=== PATIENT | female | born 1985 | race Caucasian/White ===

== ENCOUNTER 2023-10-12 07:39 | Emergency (ER) | payer SELFPAY ==
[2023-10-12 07:41] VITALS: BP 127/62; PULSE 100; RESP 18; TEMP 36.6; O2SAT 100; BMI 27.4
[2023-10-12 07:46] VITALS: BP 127/82; PULSE 93; O2SAT 100
--- NOTE | 2023-10-12 07:50 | HMH.EDGENADL ---
Discharge Plan Disposition Patient Disposition: Home, Self-Care Condition: Good Prescriptions Prescriptions: New fluconazole 150 mg tablet 150 mg PO Q3D Qty: 1 0RF cephalexin 500 mg capsule 500 mg PO Q6H 7 Days Qty: 28 0RF Referrals Follow up/Referrals: Provider,Referral, [Primary Care Provider] - See instructions Activity Restrictions/Add. Instructions Additional Instructions/Restrictions: As we discussed, your urinalysis shows evidence of a UTI. This could be due to sexually transmitted bacteria or nonsexually transmitted bacteria. After our discussion, you prefer to wait on the results of gonorrhea and chlamydia testing prior to treating this as if it were a sexually transmitted infection. Your test was negative. I have prescribed antibiotics as well as a yeast pill to the pharmacy. Please return with any new or worsening symptoms. It may be the case that your test is negative because you are too early in your , for that reason if you still do not have your period you will need another test. Clinical Impressions Clinical Impression: Urinary tract infection Instructions Patient Instructions: DI for Urinary Tract Infection (UTI) Discharge ED Provider: Raleigh Barrios General Adult HPI General Chief complaint: Urogenital-Female Stated complaint: uti Time Seen by Provider: 10/12/23 07:50 History of Present Illness HPI narrative: The patient presents with concerns about being approximately 10 days late for her menstrual period, which is unusual as she typically experiences her period either two days early or a day or two late. She denies experiencing typical symptoms such as morning sickness. Additionally, she reports symptoms suggestive of a urinary tract infection (UTI), which began about five days ago. These symptoms include a burning sensation during urination, particularly towards the end, and some discharge. She also mentions experiencing cramping at the top of her abdomen. The symptoms had briefly subsided after consuming cranberry juice but then flared up again. This morning, she started experiencing pain in her back on both sides. She confirms that she has had similar UTI symptoms in the past. She denies any history of kidney stones, abdominal surgeries, or diabetes. She is not currently on any medications. The possibility of a sexually transmitted infection (STI) was discussed, and she agreed to proceed with precautionary treatment for potential STIs like gonorrhea or chlamydia, pending further diagnostic results. Please note that above description of symptoms, in this electronic medical record under categorization of recalled from ER triage doctor by RN are reflective of an initial nursing assessment, however, is not reflective of my full history and physical exam that was personally taken and clarified. Consequentially, this preceding description of symptoms, which may include the patient's categorized chief complaint in the EMR, do not reflect my personal clinical impression, and the ultimate description of history of present illness and patient stated complaints should be deferred to this section of the note. Unless stated otherwise or congruent with this section of the note, additional signs, symptoms, or incongruence should be interpreted as inaccurate with my clinical impression. Related Data Previous Rx's Medication Instructions Recorded cephalexin 500 mg capsule 500 mg PO Q6H 7 days #28 caps 10/12/23 fluconazole 150 mg tablet 150 mg PO Q3D 1 dose #1 tab 10/12/23 Allergies Allergy/AdvReac Type Severity Reaction Status Date / Time tramadol Allergy Verified 10/12/23 07:52 [facility] Disclaimer: The information contained in this section may have been updated after the patient was seen, as this information can be updated by other users. Social History Smoking Status: Current every day smoker alcohol intake: former current occupational status: other Travel in the last 8 weeks: None ROS Obtained: Yes other As per HPI Physical Exam General General appearance: alert and in no apparent distress Head Head exam: atraumatic and normocephalic Eye Eye exam: Present normal appearance Neck Neck exam: Present normal inspection Chest Chest inspection: Present normal inspection and symmetric chest wall rise Respiratory Respiratory exam: Present normal lung sounds bilaterally; Absent respiratory distress Cardiovascular Cardiovascular exam: Present regular rate and normal rhythm Abdominal Exam Abdominal exam: Present soft Neurological Exam Neurological exam: Present alert and oriented X3 Psychiatric Psychiatric exam: Present normal affect and normal mood Skin Skin exam: Present warm and dry Medical Decision Making Medical Records Medical records reviewed: Yes I reviewed the patient's medical records. Andre Inquiry Pt receiving controlled substance: No Vital Signs: 10/12/23 07:41 10/12/23 07:46 10/12/23 08:42 Temperature 97.8 F 98.0 F Temperature Source Oral Pulse Rate 93 H 60 Pulse Rate [Right] 100 H Respiratory Rate 18 13 Blood Pressure 127/82 117/67 Blood Pressure [Right Arm] 127/62 Blood Pressure Mean 90 Blood Pressure Mean [Right Arm] 83 02 Sat by Pulse Oximetry 100 100 Oxygen Delivery Method Room Air Lab Data Lab Results 10/12/23 07:49: Urine Color Yellow, Urine Appearance Sl cloudy, Urine pH 6.0, Ur Specific Bartlett >= 1.030, Urine Protein Trace, Urine Glucose (UA) Negative, Urine Ketones Negative, Urine Blood Trace-i, Urine Nitrate Positive, Urine Bilirubin Negative, Urine Urobilinogen 1.0, Ur Leukocyte Esterase Negative, Urine RBC 3-5, Urine WBC 50-100, Ur Squamous Epith Cells 3-5, Urine Bacteria 4+, Urine HCG, Qual Negative Orders (Tests/Meds): ORDERS Category Date Time Status Urinalysis and Microscopic Stat Lab 10/12/23 07:49 Completed Urine , HCG Qual. Stat Lab 10/12/23 07:49 Completed Urine Culture Stat Micro 10/12/23 07:49 Results Medical Decision Narrative: Patient with history and exam per above presenting for evaluation of dysuria, suprapubic abdominal pain Diagnoses considered include cystitis, pyelonephritis, STI, among others ED workup and treatment included: ORDERS Category Date Time Status Urinalysis and Microscopic Stat Lab 10/12/23 07:49 Completed Urine , HCG Qual. Stat Lab 10/12/23 07:49 Completed Urine Culture Stat Micro 10/12/23 07:49 Results Labs were independently interpreted by me, significant for pyuria, bacteriuria, test negative There is insufficient evidence of any acute pathology to warrant imaging at this time. My clinical impression at this time is most consistent with UTI, patient declines STI empiric treatment and will follow-up with PCP for further testing after shared decision making. I discussed my clinical impression with patient and answered all questions. At this time, the evidence for any other entities in the differential is insufficient to warrant any further testing or ED observation. This was explained to the patient. The patient was advised that persistent or worsening symptoms require further evaluation. I confirmed the patient's understanding of this discussion. Critical Care Critical Care Time Critical Care Time: No
[2023-10-12 07:56] LABS: Microscopic, Urine URINE MICROSCOPIC (MICROSCOPIC)
[2023-10-12 07:57] LABS: Appearance,Urine SL CLOUDY (Clear); Bilirubin,Urine Negative (Negative); Blood, Urine TRACE-I (Negative); Color,Urine YELLOW (Yellow); Glucose,Urine (UA) Negative (Negative); Ketones,Urine Negative (Negative); Leukocyte Esterase,Urine Negative (Negative); Nitrate,Urine POSITIVE (Negative); Protein,Urine TRACE (Negative); Specific Gravity, Urine >= 1.030 (1.005-1.030)
[2023-10-12 08:00] LABS: Urine Pregnancy, HCG Qual. Negative (Negative)
[2023-10-12 08:14] LABS: Bacteria,Urine 4+ /lpf
[2023-10-12 08:16] LABS: WBC,Urine 50-100 #/hpf (0-3)
--- OUTSIDE RECORDS SUMMARY | 2023-10-12 08:24 | XMS_ITS | Continuity of Care Document ---
Author Name Unknown Address [address], [place] [id number] Organization [facility] Phone Care Team Providers Care Test Manager Name Role Phone GUSTAVO WALKER Admitting GUSTAVO WALKER Unavailable GUSTAVO WALKER Primary Attending DECLINED, PCP Primary Care Unavailable ALLERGIES AND ADVERSE REACTIONS ALLERGIES AND ADVERSE REACTIONS Code System Allergy Substance Adverse Reaction Date Reaction (Severity) Comment Status Reported By Updated By TRAMADOL Adverse reaction to substance stomach cramps active [id number] on June 05, 2023 11:10:[place] [address] RXNorm Ultram Adverse reaction to substance Not Specified active [id number] on June 05, 2023 11:10:07 PM [place] FAMILY HISTORY RELATION: Father Status: LIVING SNOMED-CT Diagnosis Age At Onset [id number] Hypertensive disorder RELATION: Mother Status: LIVING SNOMED-CT Diagnosis Age At Onset Information not available RESULTS Patient: NANCY Mora Date of : [birth year] 986 63 LABORATORY RESULTS ORDER 100: UA WITH CULTURE I F INDICATED (LOINC: 13445-1) ORDER DATE: June 05, 2023 11:10:00 PM UTC Specimen Source: Urine PERFORMING LAB: [address] [id number] Result Comment: Final Result Date: June 06, 2023 12:06:00 AM UTC (TECH: PS) LOINC TEST FLAG RESULT REFERENCE RANGE UPDA ITZEL BY 5778-6 Color of Urine N YELLOW YELLOW Janua 2023 12:06:00 AM UTC (TECH: PS) 5767-9 Appearance of Urine N HAZY CLEAR June 06, 2023 12:06:00 AM UTC (TECH: PS) 5792-7 Glucose [Mass/volume] in Urine by Test strip N NEGATIVE NEGATIVE June 06, 2023 12:06:00 AM UTC (TECH: PS) 67890-3 Bilirubin.total [Mass/volume] in Urine by Automated test strip N NEGATIVE NEGATIVE June 06, 2023 12:06:00 AM UTC (TECH: PS) 5797-6 Ketones [Mass/volume] in Urine by Test strip N NEGATIVE NEGATIVE June 06, 2023 12:06:00 AM UTC (TECH: PS) 2965-2 Specific gravity of Urine H 1.030 1.005 - 1.025 June 06, 2023 12:06:00 AM UTC (TECH: PS) 89219-3 Erythrocytes [#/volume] in Urine by Automated test strip N TRACE-LYSED NEGATIVE June 06, 2023 12:06:00 AM UTC (TECH: PS) 95708-4 pH of Urine by Automated test strip N 5.5 5.0 - 8.0 June 06, 2023 12:06:00 AM UTC (TECH: PS) 54885-1 Protein [Presence] in Urine by Test strip N NEGATIVE NEGATIVE June 06, 2023 12:06:00 AM UTC (TECH: PS) 23840-4 Urobilinogen [Mass/volume] in Urine by Automated test strip N 0.2 E.U./dL 0.0 - 0.2 June 06, 2023 12:06:00 AM UTC (TECH: PS) 86202-5 Nitrate [Presence] in Urine N NEGATIVE NEGATIVE June 06, 2023 12:06:00 AM UTC (TECH: PS) 71582-9 Leukocytes [#/volume] in Urine by Test strip N 2+ NEGATIVE June 06, 2023 12:06:00 AM UTC (TECH: PS) 67079-7 Other elements in Urine sediment N INDICATED June 06, 2023 12:06:00 AM UTC (TECH: PS) 54112-5 Microscopic exam [interpretation] of Urine by Cytology N YES June 06, 2023 12:06:00 AM UTC (TECH: PS) 40901-6 Erythrocytes [#/area] in Urine sediment by Microscopy high power field N 0-2 NONE SEEN/HPF June 06, 2023 12:06:00 AM UTC (TECH: PS) 5821-4 Leukocytes [#/area] in Urine sediment by Microscopy high power field N 40-60 NONE SEEN/HPF June 06, 2023 12:06:00 AM UTC (TECH: PS) 10074-5 Epithelial cells.squamous [#/area] in Urine sediment by Microscopy high power field N 0-2 NONE SEEN June 06, 2023 12:06:00 AM UTC (TECH: PS) 5769-5 Bacteria [#/area] in Urine sediment by Microscopy high power field N 1+ NEGATIVE June 06, 2023 12:06:00 AM UTC (TECH: PS) ORDER 200: GC AND CHLAMYDIA BY PCR IN-HOUSE (LOINC: 30048-6) ORDER DATE: June 05, 2023 11:28:00 PM UTC Specimen Source: Urine PERFORMING LAB: [address] [id number] Result Comment: Final Result Date: June 06, 2023 1:30:00 AM UTC (TECH: [facility]) LOINC TEST [place] [address]-4 Chlamydia sp DNA [Presence] in Unspecified specimen by Probe and target amplification method N NEGATIVE NEGATIVE June 06, 2023 1:30:00 AM UTC (TECH: [facility]) 36530-4 Neisseria gonorrhoea e DNA [Presence] in Unspecified specimen by Probe and target amplification method N NEGATIVE NEGATIVE June 06, 2023 1:30:00 AM UTC (TECH: [facility]) ORDER 300: URINE T EST (LOINC: 2112-1) ORDER DATE: June 05, 2023 11:28:00 PM UTC Specimen Source: Urine PERFORMING LAB: [address] [id number] Result Comment: Final Result Date: June 06, 2023 12:00:00 AM UTC (TECH: PS) LOINC TEST FLAG RESULT REFERENCE RANGE UPDA ITZEL BY 2112-1 Choriogonadotropin.b eta subunit ( test) [Presence] in Urine N NEGATIVE NEGATIVE June 06, 2023 12:00:00 AM UTC (TECH: PS) 29726-3 Non-patient Communic ation note N PASS PASS June 06, 2023 12:00:00 AM UTC (TECH: PS) LABORATORY NARRATIVE RESULTS Information is not available RADIOLOGY RESULTS Information is not available PATHOLOGY NARRATIVE RESULTS Information is not available MICROBIOLOGY RESULTS No Micro Labs/Results Exist for Patient BLOOD ADMIN RESULTS Information is not available TREATMENT PLAN DISCHARGE MEDICATIONS Status RXNORM Medication Dose Route Frequency Dates Comments U pdated By Patient discharge medication information is not available. PATIENT OPEN ORDERS Code System Description Frequency Occurrences Priority Start Date Ordering Physician Updated By 630-4 LOINC Bacteria identified in Urine by Culture ONE TIME 0 Routine June 06, 2023 12:05:[address] [facility] DAGMAR DELGADO on June 06, 2023 12:05:[address] [facility] SCHEDULED PROCEDURES Code System Description Status Scheduled Date Upd ated By Patient scheduled procedure information is not available. MEDICATIONS HOME MEDICATIONS Status RXNORM Medication Dose Route Frequency Dates Comments R eported By Updated By Drug Treatment Unknown DISCHARGE MEDICATIONS Status RXNORM Medication Dose Route Frequency Dates Comments Physic venita Updated By No Discharge Medication Info rmation Available INPATIENT MEDICATIONS Status RXNORM Medication Dose Route Frequency Rate Quantity Dates Comments Physician Updated By Jay Jay alfonso nitrofurant oin (MACRODANTI N) 50 MG CAPS 50.0 MG BY MOUTH ONE TIME ONLY Start: natalie 2023 1:51:0 0 AM [place] End: Alhaji lopes 2023 1:51:[address] [facility] AARON CHEN [facility] ED on June 06, 2023 1:50:00 AM [place] SOCIAL HISTORY SOCIAL HISTORY SNOMED-CT Social History Element Description Effective Dates Offered Cessation Comment UpdatedBy [id number] Historical Tobacco smoking status Current Every Day Smoker Refused 3 cig a day [id number] on April 26, 2019 3:56:34 PM [place] SOCIAL HISTORY - Gender Sex: Female SOCIAL HISTORY - Sexual Behavior Sexual Orientation Gender Identity SNOMED-CT Description SNO MED -CT Description Activity Level No of Partners Partner Type UpdatedBy Information is not available VITAL SIGNS PATIENT VITAL SIGNS This section displays the mo st recent value for each vital sign as of June 06, 2023 3:05:[address] [facility] Loinc Code Vital Sign Activity Date Result Updated By 8462-4 Diastolic blood pressure June 06, 2023 2:03:00 AM [place] 61.0 mm[Hg] [id number] on June 06, 2023 2:04:[address] [facility] 8867-4 Heart rate June 06, 2023 2:03:[address] [facility] 84 /min [id number] on June 06, 2023 2:04:[address] [facility] 46031-2 Oxygen saturation in Blood June 06, 2023 2:03:[address] [facility] 99.0 % [id number] on June 06, 2023 2:04:[address] [facility] 9279-1 Respiratory rate June 06 2:03:[address] [facility] 18 /min [id number] on June 06, 2023 2:04:[address] [facility] 8480-6 Systolic blood pressure June 06, 2023 2:03:00 AM [place] 121.0 mm[Hg] [id number] on June 06, 2023 2:04:[address] [facility] PEDIATRIC GROWTH CHART - VITAL SIGNS This section displays Head C ircumference Percentile, Weight for Length Percentile and BMI Percentile Loinc Code Pediatric Measure Age (Months) Result Updat ed By No Pediatric Growth Chart Pe rcentile Information Available. HEALTH CONCERNS Problems Concern Status Health Concern problem infor mation not available. Smoking Status Status Years Used Consumed packs p er day Health Concern smoking histo ry information not available. Family History Concern Status Health Concern family histor y information not available. ENCOUNTERS ENCOUNTER INFORMATION Reason for Visit URINARY ISSUE Admission June 05, 2023 11:03:00 PM [place] [id number] Discharge June 06, 2023 2:05:[address] [facility] DISCHARGED TO HOME OR SELF CARE ENCOUNTER DIAGNOSES Notes information is not derek ilable. Code System Diagnosis Onset Date Diagnosis information is not available. ABSTRACT DIAGNOSES Code System Diagnosis Updated By Abstract Diagnosis informati on is not available. CARE TEAM Care Test Manager Role GUSTAVO WALKER Admitting GUSTAVO WALKER Referring GUSTAVO WALKER Primary Attending PCP DECLINED Primary Care CARE TEAM CARE bond underwriter Role on Team Status Start Date End Date Update d By AARON CHEN Referring normal June 06 12:46:[address] [facility] June 06, 2023 2:05:[address] [facility] [id number] on June 06, 2023 12:46:[address] [facility] AARON CHEN Attending normal June 06 12:46:[address] [facility] June 06, 2023 2:05:[address] [facility] [id number] on June 06, 2023 12:46:[address] [facility] AARON CHEN Admitting normal June 06 12:46:[address] [facility] June 06, 2023 2:05:[address] [facility] [id number] on June 06, 2023 12:46:[address] [facility] DECLINED PCP PCP normal June 05 11:03:[address] [facility] June 06, 2023 2:05:[address] [facility] [id number] on June 06, 2023 12:46:[address] [facility]
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
--- OUTSIDE RECORDS SUMMARY | 2023-10-12 08:24 | XMS_ITS | Continuity of Care Document ---
Author Name Unknown Address [address] [place] [phone] Organization [facility] Care Team Providers Care Cover Creaser Name Role Phone EDISON WAKEFIELD Admitting EDISON WAKEFIELD Primary Attending DECLINED, PCP Primary Care Unavailable EDISON WAKEFIELD Unavailable ALLERGIES AND ADVERSE REACTIONS ALLERGIES AND ADVERSE REACTIONS Code System Allergy Substance Adverse Reaction Date Reaction (Severity) Comment Status Reported By Updated By TRAMADOL Adverse reaction to substance stomach cramps active [id number] on October 10, 2023 4:34:[place] [address] RXNorm Ultram Adverse reaction to substance Not Specified active [id number] on October 10, 2023 4:34:54 PM UT FAMILY HISTORY RELATION: Father Status: LIVING SNOMED-CT Diagnosis Age At Onset [id number] Hypertensive disorder RELATION: Mother Status: LIVING SNOMED-CT Diagnosis Age At Onset Information not available RESULTS Patient: NANCY Mora Date of : [birth year] 64 LABORATORY RESULTS ORDER 100: CBC W/ AUTO DIFF (LOINC: 50710-8) ORDER DATE: October 10, 2023 4:35:00 PM UT Specimen Source: Whole Blood Specimen Type: Whole blood s ample PERFORMING LAB: [address] [id number] Result Comment: Final Result Date: October 10, 2023 5:44:00 PM UT (TECH: GS) LOINC TEST FLAG RESULT REFERENCE RANGE UPDA ITZEL BY 6690-2 Leukocytes [#/volume ] in Blood by Automated count N 8.81 K/uL 4.5 K/uL - 11.5 K/uL October 10, 2023 5:44:00 PM UT (TECH: GS) 789-8 Erythrocytes [#/volume] in Blood by Automated count N 4.69 M/uL 4.0 M/uL - 5.4 M/uL October 10, 2023 5:44:00 PM UTC ([employer]: [employer]) 718-7 Hemoglobin [Mass/volume] in Blood N 14.1 g/dL 12.0 g/dL - 15.0 g/dL October 10, 2023 5:44:00 PM UTC (TECH: [employer]) 4544-3 Hematocrit [Volume Fraction] of Blood by Automated count N 41.8 % 35 % - 49 % October 10, 2023 5:44:00 PM UTC ([employer]) 787-2 Erythrocyte mean corpuscular volume [Entitic volume] by Automated count N 89.1 fL 80.0 fL - 100.0 fL October 10, 2023 5:44:00 PM UTC ([employer]) 785-6 Erythrocyte mean corpuscular hemoglobin [Entitic mass] by Automated count N 30.1 pg 26.0 pg - 32.0 pg October 10, 2023 5:44:00 PM UTC ([employer]) 786-4 Erythrocyte mean corpuscular hemoglobin concentration [Mass/volume] by Automated count N 33.7 g/dL 32.0 g/dL - 36.0 g/dL October 10, 2023 5:44:00 PM UTC ([employer]) 788-0 Erythrocyte distribution width [Ratio] by Automated count N 13.2 % 11.5 % - 14.5 % October 10, 2023 5:44:00 PM UTC ([employer]) 777-3 Platelets [#/volume] in Blood by Automated count N 265 K/uL 142 K/uL - 424 K/uL October 10, 2023 5:44:00 PM UTC ([employer]) 27693-0 Platelet mean volume [Entitic volume] in Blood by Automated count N 9.8 fL 6.8 fL - 10.2 fL October 10, 2023 5:44:00 PM UTC ([employer]) 09038-8 Neutrophils/100 leukocytes in Blood N 63.8 % 50 % - 70 % October 10, 2023 5:44:00 PM UTC (TECH: [employer]) 72159-7 Lymphocytes/100 leukocytes in Blood N 24.2 % 18.0 % - 42.0 % October 10, 2023 5:44:00 PM UTC (TECH: GS) 88699-3 Monocytes/100 leukocytes in Blood N 10.0 % 2.0 % - 11.0 % October 10, 2023 5:44:00 PM UTC (TECH: GS) 02786-4 Eosinophils/100 leukocytes in Blood N 1.4 % 1.0 % - 3.0 % October 10, 2023 5:44:00 PM UTC (TECH: GS) 95053-4 Basophils/100 leukocytes in Blood N 0.3 % 0.0 % - 2.0 % October 10, 2023 5:44:00 PM UTC (TECH: GS) 92379-6 Immature granulocytes/100 leukocytes in Blood by Automated count N 0.3 % 0.0 % - 0.8 % October 10, 2023 5:44:00 PM UTC (TECH: GS) 00999-6 Nucleated cells [#/volume] in Blood N 0.0 % October 10, 2023 5:44:00 PM UTC (TECH: GS) 47145-4 Neutrophils [#/volume] in Blood N 5.62 K/uL October 10, 2023 5:44:00 PM UTC (TECH: GS) 15030-4 Lymphocytes [#/volume] in Blood N 2.13 K/uL October 10, 2023 5:44:00 PM UTC (TECH: GS) 11561-5 Monocytes [#/volume] in Blood N 0.88 K/uL October 10, 2023 5:44:00 PM UTC (TECH: GS) 44040-1 Eosinophils [#/volume] in Blood N 0.12 K/uL October 10, 2023 5:44:00 PM UTC (TECH: GS) 704-7 Basophils [#/volume] in Blood by Automated count N 0.03 K/uL October 10, 2023 5:44:00 PM UTC (TECH: GS) 28003-3 Immature granulocyte s [#/volume] in Blood N 0.03 K/uL October 10, 2023 5:44:00 PM UTC (TECH: GS) 23301-7 Nucleated cells [#/volume] in Blood N 0.00 k/uL October 10, 2023 5:44:00 PM UTC (TECH: GS) 94491-4 Manual differential comment [interpretation] in Blood Narrative N NO October 10, 2023 5:44:00 PM UTC (TECH: ) ORDER 200: COMP METABOLIC PA FRANK (LOINC: 27387-9) ORDER DATE: October 10, 2023 4:35:00 PM UT Specimen Source: Serum/Plasm a Specimen Type: Acellular blo od (serum or plasma) specimen PERFORMING LAB: [address] [id number] Result Comment: Final Result Date: October 10, 2023 5:53:00 PM UT (TECH: [facility]) LOINC TEST FLAG RESULT REFERENCE RANGE UPDA ITZEL BY 2951-2 Sodium [Moles/volume ] in Serum or Plasma N 140 mmol/L 137 mmol/L - 147 mmol/L October 10, 2023 5:53:00 PM UT (TECH: [facility]) 2823-3 Potassium [Moles/volume] in Serum or Plasma N 3.8 mmol/L 3.5 mmol/L - 5.1 mmol/L October 10, 2023 5:53:00 PM UT (TECH: CB) 2075-0 Chloride [Moles/volume] in Serum or Plasma N 104 mmol/L 98 mmol/L - 110 mmol/L October 10, 2023 5:53:00 PM UT (TECH: CB) 8-9 Carbon dioxide, tota l [Moles/volume] in Serum or Plasma N 28 mmol/L 21 mmol/L - 30 mmol/L October 10, 2023 5:53:00 PM UT (TECH: CB) 59231-6 Anion gap in Serum o r Plasma N 8 mmol/L 6 mmol/L - 14 mmol/L October 10, 2023 5:53:00 PM UT (TECH: CB) 2345-7 Glucose [Mass/volume ] in Serum or Plasma N 88 mg/dL 70 mg/dL - 115 mg/dL October 10, 2023 5:53:00 PM UT (TECH: CB) 3094-0 Urea nitrogen [Mass/volume] in Serum or Plasma N 15 mg/dL 7 mg/dL - 17 mg/dL October 10, 2023 5:53:00 PM UT (TECH: CB) 2160-0 Creatinine [Mass/volume] in Serum or Plasma N 0.8 mg/dL 0.5 mg/dL - 1.5 mg/dL October 10, 2023 5:53:[address] [facility] (TECH: [employer]) 3097-3 Urea nitrogen/Creatinine [Mass Ratio] in Serum or Plasma N 19 RATIO 10 RATIO - 20 RATIO October 10, 2023 5:53:[address] [facility] (TECH: [employer]) 28359-9 Glomerular filtratio n rate/1.73 sq M.predicted N 86 mL/min >60 October 10, 2023 5:53:[address] [facility] (TECH: [employer]) 41036-1 Osmolality of Serum or Plasma by calculation N 291 mOsmol/Kg 275 mOsmol/Kg - 301 mOsmol/Kg October 10, 2023 5:53:[address] [facility] ([employer]: [employer]) 2885-2 Protein [Mass/volume ] in Serum or Plasma N 7.7 g/dL 6.2 g/dL - 8.2 g/dL October 10, 2023 5:53:[address] [facility] (TECH: [employer]) 1751-7 Albumin [Mass/volume ] in Serum or Plasma N 4.6 g/dL 3.5 g/dL - 5.0 g/dL October 10, 2023 5:53:[address] [facility] (TECH: [employer]) 96541-4 Calcium [Mass/volume ] in Serum or Plasma N 9.6 mg/dL 8.5 mg/dL - 10.8 mg/dL October 10, 2023 5:53:[address] [facility] (TECH: [employer]) 1975-2 Bilirubin.total [Mass/volume] in Serum or Plasma N 0.6 mg/dL 0.2 mg/dL - 1.3 mg/dL October 10, 2023 5:53:[address] [facility] (TECH: [employer]) 1920-8 Aspartate aminotransferase [Enzymatic activity/volume] in Serum or Plasma N 20 IU/L 14 IU/L - 36 IU/L October 10, 2023 5:53:[address] [facility] (TECH: [employer]) 1742-6 Alanine aminotransferase [Enzymatic activity/volume] in Serum or Plasma N 17 IU/L 0 IU/L - 35 IU/L October 10, 2023 5:53:[address] [facility] (TECH: [employer]) 91238-3 Alkaline phosphatase.bile [Enzymatic activity/volume] in Serum or Plasma N 88 IU/L 38 IU/L - 126 IU/L October 10, 2023 5:53:00 PM UTC (TECH: [facility]) ORDER 300: HCG QUALITATIVE S DRE (LOINC: 2117-) ORDER DATE: October 10, 2023 4:35:00 PM UTC Specimen Source: Serum Specimen Type: Serum specime n PERFORMING LAB: [address] [id number] Result Comment: Final Result Date: October 10, 2023 5:53:00 PM UTC (TECH: [facility]) LOINC TEST FLAG RESULT REFERENCE RANGE UPDA ITZEL BY 2117-12 Choriogonadotropin ( test) [Presence] in Serum or Plasma N NEGATIVE NEGATIVE October 10, 2023 5:53:00 PM UT (TECH: [facility]) 46965-2 Non-patient Communic ation note N PASS PASS October 10, 2023 5:53:00 PM UT (TECH: [facility]) ORDER 400: LIPASE (LOINC: 30 40-3) ORDER DATE: October 10, 2023 4:35:00 PM UTC Specimen Source: Serum/Plasm a Specimen Type: Acellular blo od (serum or plasma) specimen PERFORMING LAB: [address] [id number] Result Comment: Final Result Date: October 10, 2023 5:53:00 PM UTC (TECH: [facility]) LOINC TEST FLAG RESULT REFERENCE RANGE UPDA ITZEL BY 3040-3 Lipase [Enzymatic activity/volume] in Serum or Plasma N 64 U/L 23 U/L - 300 U/L October 10, 2023 5: 53:00 PM UTC (TECH: [facility]) LABORATORY NARRATIVE RESULTS Information is not available [...] Priority [place] [address]-7 LOINC Urinalysis complete W Reflex Culture panel - Ur ONE TIME 0 Stat October 10, 2023 4:35:00 PM UT TRISTEN FARRELL [id number] on October 10, 2023 4:35:00 PM UT SCHEDULED PROCEDURES Code System Description Status Scheduled Date Upd ated By Patient scheduled procedure information is not available. MEDICATIONS HOME MEDICATIONS Status RXNORM NDC Medication Dose Route Frequency Dates Comments Reported By Updated By Drug Treatment Unknown DISCHARGE MEDICATIONS Status RXNORM NDC Medication Dose Route Frequency Dates Comments Physician Updated By No Discharge Medication Info rmation Available INPATIENT MEDICATIONS Status RXNORM NDC Medication Dose Route Frequency Rat e Quantity Dates Comments Physician Updated By No Inpatient Medication Info rmation Available SOCIAL HISTORY SOCIAL HISTORY SNOMED-CT Social History Element Description Effective Dates Offered Cessation Comment UpdatedBy [id number] Historical Tobacco smoking status Current Every Day Smoker Refused 3 cig a day [id number] on April 26, 2019 3:56:34 PM UT SOCIAL HISTORY - Gender Sex: Female SOCIAL HISTORY - Status : status i nformation is not available Intention in Next Year: intention information is not available SOCIAL HISTORY - Sexual Behavior Sexual Orientation Gender Identity SNOMED-CT Description SNO MED -CT Description Activity Level No of Partners Partner Type UpdatedBy Information is not available VITAL SIGNS PATIENT VITAL SIGNS This section displays the mo st recent value for each vital sign as of October 10, 2023 7:39:[address] [facility] Loinc Code Vital Sign Activity Date Result Updated By 8310-5 Body temperature October 10, 2023 4: 32:00 PM UT 97.0 [degF] [id number] on October 10, 2023 4:34:23 PM [place] 8462-4 Diastolic blood pressure October 10, 2023 4:32:00 PM UTC 62.0 mm[Hg] [id number] on October 10, 2023 4:34:23 PM UT 8867-4 Heart rate October 10, 2023 4:3 2:00 PM UT 93 /min [id number] on October 10, 2023 4:34:[place] [address]-6 Oxygen saturation in Arterial blood by Pulse oximetry October 10, 2023 4:32:00 PM UT 99.0 % [id number] on October 10, 2023 4:34:23 PM UT 9279-1 Respiratory rate October 10, 2023 4: 32:00 PM UTC 16 /min [id number] on October 10, 2023 4:34:23 PM UT 8480-6 Systolic blood pressure October 10, 2023 4:32:00 PM UTC 112.0 mm[Hg] [id number] on October 10, 2023 4:34:[address] [facility] PEDIATRIC GROWTH CHART - VITAL SIGNS This [...] available. ENCOUNTERS ENCOUNTER INFORMATION Reason for Visit CRAMPING Admission October 10, 2023 4:26:[address] [address] Discharge October 10, 2023 6:39:00 PM UT LEFT AGAINST ADVICE OR DISCONTINUED ENCOUNTER DIAGNOSES Notes information is not derek ilable. Code System Diagnosis Onset Date Diagnosis information is not available. ABSTRACT DIAGNOSES Code System Diagnosis Updated By Abstract Diagnosis informati on is not available. CARE TEAM Care Cover Creaser Role EDISON WAKEFIELD Admitting EDISON WAKEFIELD Primary Attending PCP DECLINED Primary Care EDISON WAKEFIELD Referring CARE TEAM CARE corporate lawyer Role on Team Status Start Date End Date Update d By ASHU HOGAN MD Referring normal October 10, 2023 6:25:[address] [facility] October 10, 2023 6:39:[address] [facility] [id number] on October 10, 2023 6:25:[address] [facility] ASHU HOGAN MD Attending normal October 10, 2023 6:25:[address] [facility] October 10, 2023 6:39:[address] [facility] [id number] on October 10, 2023 6:25:[address] [facility] ASHU HOGAN MD Admitting normal October 10, 2023 6:25:[address] [facility] October 10, 2023 6:39:[address] [facility] [id number] on October 10, 2023 6:25:[address] [facility] DECLINED PCP PCP normal October 10, 2023 4:26:[address] [facility] October 10, 2023 6:39:[address] [facility] [id number] on October 10, 2023 6:25:[address] [facility]
[2023-10-12 08:42] VITALS: BP 117/67; PULSE 60; RESP 13; TEMP 36.7
--- NOTE | 2023-10-15 09:49 | PC.NURSE ---
urine culture results discussed with , pt dc with cephalexin, ntd
== END 2023-10-12 08:43 | disposition home or self-care (01) ==
PROVIDERS: Emergency Provider Emergency Medicine
DX: N39.0 Urinary tract infection, site not specified (principal); B96.29 Other Escherichia coli [E. coli] as the cause of diseases classified elsewhere; R10.30 Lower abdominal pain, unspecified; R30.0 Dysuria; F17.210 Nicotine dependence, cigarettes, uncomplicated
CPT/HCPCS: 81001; 81025; 87086; 87088; 87186; 99283

== ENCOUNTER 2023-10-23 12:54 | Emergency (ER) | payer SELFPAY ==
[2023-10-23 12:55] VITALS: BP 124/76; PULSE 94; RESP 16; TEMP 36.6; O2SAT 100; BMI 29.2
[2023-10-23 13:01] VITALS: BMI 28.3
[2023-10-23 13:05] LABS: Microscopic, Urine URINE MICROSCOPIC (MICROSCOPIC)
[2023-10-23 13:09] LABS: Bilirubin,Urine Negative (Negative); Blood, Urine Negative (Negative); Glucose,Urine (UA) Negative (Negative); Ketones,Urine Negative (Negative); Leukocyte Esterase,Urine 1+ (Negative); Nitrate,Urine Negative (Negative); PH,Urine 6.5 (5.0-8.5); Protein,Urine Negative (Negative); Specific Gravity, Urine 1.025 (1.005-1.030); Urobilinogen,Urine 0.2 EU/dl (0.2)
--- OUTSIDE RECORDS SUMMARY | 2023-10-23 13:11 | XMS_ITS | Continuity of Care Document ---
Author Name Unknown Address [address] [place] [phone] Organization [facility] Phone Care Team Providers Care Slitter Processed Film Name Role Phone EDISON WAKEFIELD Admitting EDISON WAKEFIELD Primary Attending DECLINED, PCP Primary Care Unavailable EDISON WAKEFIELD Unavailable ALLERGIES AND ADVERSE REACTIONS ALLERGIES AND ADVERSE REACTIONS Code System Allergy Substance Adverse Reaction Date Reaction (Severity) Comment Status Reported By Updated By TRAMADOL Adverse reaction to substance stomach cramps active [id number] on October 10, 2023 4:34:[place] [address] RXNorm Ultram Adverse reaction to substance Not Specified active [id number] on October 10, 2023 4:34:54 PM [place] FAMILY HISTORY RELATION: Father Status: LIVING SNOMED-CT Diagnosis Age At Onset [id number] Hypertensive disorder RELATION: Mother Status: LIVING SNOMED-CT Diagnosis Age At Onset Information not available RESULTS Patient: NANCY Mora Date of : [birth year] 64 LABORATORY RESULTS ORDER 100: CBC W/ AUTO DIFF (LOINC: 80219-0) ORDER DATE: October 10, 2023 4:35:00 PM [place] Specimen Source: Whole Blood Specimen Type: Whole blood s ample PERFORMING LAB: [address] [id number] Result Comment: Final Result Date: October 10, [...] M/uL October 10, 2023 5:44:00 PM UTC ([employer]: [employer]) 718-7 Hemoglobin [Mass/volume] in Blood N 14.1 g/dL 12.0 g/dL - 15.0 g/dL October 10, 2023 5:44:00 PM UTC (TECH: [employer]) 4544-3 Hematocrit [Volume Fraction] of Blood by Automated count N 41.8 % 35 % - 49 % October 10, 2023 5:44:00 PM UTC ([employer]) 787-2 Erythrocyte mean corpuscular volume [Entitic volume] by Automated count N 89.1 fL 80.0 fL - 100.0 fL October 10, 2023 5:44:00 PM UTC ([employer]) 785-6 Erythrocyte mean corpuscular hemoglobin [Entitic mass] by Automated count N 30.1 pg 26.0 pg - 32.0 pg October 10, 2023 5:44:00 PM UTC ([employer]) 786-4 Erythrocyte mean corpuscular hemoglobin concentration [Mass/volume] by Automated count N 33.7 g/dL 32.0 g/dL - 36.0 g/dL October 10, 2023 5:44:00 PM UTC ([employer]) 788-0 Erythrocyte distribution width [Ratio] by Automated count N 13.2 % 11.5 % - 14.5 % October 10, 2023 5:44:00 PM UTC ([employer]) 777-3 Platelets [#/volume] in Blood by Automated count N 265 K/uL 142 K/uL - 424 K/uL October 10, 2023 5:44:00 PM UTC ([employer]) 18814-0 Platelet mean volume [Entitic volume] in Blood by Automated count N 9.8 fL 6.8 fL - 10.2 fL October 10, 2023 5:44:00 PM UTC ([employer]) 77101-1 Neutrophils/100 leukocytes in Blood N 63.8 % 50 % - 70 % October 10, 2023 5:44:00 PM UTC (TECH: [employer]) 45695-5 Lymphocytes/100 leukocytes in Blood N 24.2 % 18.0 % - 42.0 % October 10, 2023 5:44:00 PM UTC (TECH: GS) 30332-9 Monocytes/100 leukocytes in Blood N 10.0 % 2.0 % - 11.0 % October 10, 2023 5:44:00 PM UTC (TECH: GS) 87443-5 Eosinophils/100 leukocytes in Blood N 1.4 % 1.0 % - 3.0 % October 10, 2023 5:44:00 PM UTC (TECH: GS) 89116-9 Basophils/100 leukocytes in Blood N 0.3 % 0.0 % - 2.0 % October 10, 2023 5:44:00 PM UTC (TECH: GS) 38358-9 Immature granulocytes/100 leukocytes in Blood by Automated count N 0.3 % 0.0 % - 0.8 % October 10, 2023 5:44:00 PM UTC (TECH: GS) 51767-8 Nucleated cells [#/volume] in Blood N 0.0 % October 10, 2023 5:44:00 PM UTC (TECH: GS) 80702-0 Neutrophils [#/volume] in Blood N 5.62 K/uL October 10, 2023 5:44:00 PM UTC (TECH: GS) 09191-8 Lymphocytes [#/volume] in Blood N 2.13 K/uL October 10, 2023 5:44:00 PM UTC (TECH: GS) 20235-3 Monocytes [#/volume] in Blood N 0.88 K/uL October 10, 2023 5:44:00 PM UTC (TECH: GS) 90498-1 Eosinophils [#/volume] in Blood N 0.12 K/uL October 10, 2023 5:44:00 PM UTC (TECH: GS) 704-7 Basophils [#/volume] in Blood by Automated count N 0.03 K/uL October 10, 2023 5:44:00 PM UTC (TECH: GS) 20108-6 Immature granulocyte s [#/volume] in Blood N 0.03 K/uL October 10, 2023 5:44:00 PM UTC (TECH: GS) 90826-5 Nucleated cells [#/volume] in Blood N 0.00 k/uL October 10, 2023 5:44:00 PM UTC (TECH: GS) 75040-2 Manual differential comment [interpretation] in Blood Narrative N NO October 10, 2023 5:44:00 PM UTC (TECH: ) ORDER 200: COMP METABOLIC PA FRANK (LOINC: 88798-4) ORDER DATE: October 10, 2023 4:35:00 PM [place] Specimen Source: Serum/Plasm a Specimen Type: Acellular blo od (serum or plasma) specimen PERFORMING LAB: [address] [id number] Result Comment: Final Result Date: October 10, 2023 5:53:00 PM UT (TECH: [facility]) LOINC TEST FLAG RESULT REFERENCE RANGE UPDA ITZEL BY 2951-2 Sodium [Moles/volume ] in Serum or Plasma N 140 mmol/L 137 mmol/L - 147 mmol/L October 10, 2023 5:53:00 PM UT (TECH: [facility]) 2823-3 Potassium [Moles/volume] in Serum or Plasma [...] 10, 2023 5:53:00 PM UT (TECH: CB) 56732-3 Anion gap in Serum o r Plasma [...] 1.5 mg/dL October 10, 2023 5:53:00 PM [facility] (TECH: [employer]) 3097-3 Urea nitrogen/Creatinine [Mass Ratio] in Serum or Plasma N 19 RATIO 10 RATIO - 20 RATIO October 10, 2023 5:53:00 PM [facility] (TECH: [employer]) 93640-5 Glomerular filtratio n rate/1.73 sq M.predicted N 86 mL/min >60 October 10, 2023 5:53:00 PM [facility] (TECH: [employer]) 06679-5 Osmolality of Serum or Plasma by calculation N 291 mOsmol/Kg 275 mOsmol/Kg - 301 mOsmol/Kg October 10, 2023 5:53:00 PM [facility] ([employer]: [employer]) 2885-2 Protein [Mass/volume ] in Serum or Plasma N 7.7 g/dL 6.2 g/dL - 8.2 g/dL October 10, 2023 5:53:00 PM [facility] (TECH: [employer]) 1751-7 Albumin [Mass/volume ] in Serum or Plasma N 4.6 g/dL 3.5 g/dL - 5.0 g/dL October 10, 2023 5:53:00 PM [facility] (TECH: [employer]) 55503-0 Calcium [Mass/volume ] in Serum or Plasma N 9.6 mg/dL 8.5 mg/dL - 10.8 mg/dL October 10, 2023 5:53:00 PM [facility] (TECH: [employer]) 1975-2 Bilirubin.total [Mass/volume] in Serum or Plasma N 0.6 mg/dL 0.2 mg/dL - 1.3 mg/dL October 10, 2023 5:53:00 PM [facility] (TECH: [employer]) 1920-8 Aspartate aminotransferase [Enzymatic activity/volume] in Serum or Plasma N 20 IU/L 14 IU/L - 36 IU/L October 10, 2023 5:53:00 PM [facility] (TECH: [employer]) 1742-6 Alanine aminotransferase [Enzymatic activity/volume] in Serum or Plasma N 17 IU/L 0 IU/L - 35 IU/L October 10, 2023 5:53:00 PM [facility] (TECH: [employer]) 54293-7 Alkaline phosphatase.bile [Enzymatic activity/volume] in Serum or Plasma N 88 IU/L 38 IU/L - 126 IU/L October 10, 2023 5:53:00 PM UTC (TECH: [facility]) ORDER 300: HCG QUALITATIVE S DRE (LOINC: 2117-12) ORDER DATE: October 10, 2023 4:35:00 PM UTC Specimen Source: Serum Specimen Type: Serum specime n PERFORMING LAB: [address] [id number] Result Comment: Final Result Date: October 10, 2023 5:53:00 PM UTC (TECH: [facility]) LOINC TEST FLAG RESULT REFERENCE RANGE UPDA ITZEL BY 2117-12 Choriogonadotropin ( test) [Presence] in Serum or Plasma N NEGATIVE NEGATIVE October 10, 2023 5:53:00 PM UT (TECH: [facility]) 65108-1 Non-patient Communic ation note N PASS PASS October 10, 2023 5:53:00 PM UT (TECH: [facility]) ORDER 400: LIPASE (LOINC: 30 40-3) ORDER DATE: October 10, 2023 4:35:00 PM UTC Specimen Source: Serum/Plasm a Specimen Type: Acellular blo od (serum or plasma) specimen PERFORMING LAB: [address] [id number] Result Comment: Final Result Date: October 10, 2023 5:53:00 PM UTC (TECH: [facility]) LOINC TEST FLAG RESULT REFERENCE RANGE UPDA ITZEL BY 3040-3 Lipase [Enzymatic activity/volume] in Serum or Plasma N 64 U/L 23 U/L - 300 U/L October 10, 2023 5: 53:00 PM UT (TECH: [facility]) LABORATORY NARRATIVE RESULTS Information is not available RADIOLOGY RESULTS Information is not available PATHOLOGY NARRATIVE RESULTS Information is not available MICROBIOLOGY RESULTS No Micro Labs/Results Exist for Patient BLOOD ADMIN RESULTS Information is not available MEDICATIONS HOME MEDICATIONS Status RXNORM NDC Medication [...] Description Effective Dates Offered Cessation Comment UpdatedBy [id number] Historical Tobacco smoking status Current Every Day Smoker Refused 3 cig a day [id number] on April 26, 2019 3:56:34 PM UTC SOCIAL HISTORY - Gender Sex: Female SOCIAL [...] for each vital sign as of October 14, 2023 8:27:07 PM UTC Loinc Code Vital Sign Activity Date Result Updated By 8310-5 Body temperature October 10, 2023 4:32:15 PM UTC 97.0 [degF] [id number] on October 11, 2023 6:39:58 PM UTC 84756-7 Body weight Measured October 10 6:39:59 PM UTC 68.039 kg (150.0 lb) [id number] on October 11, 2023 6:39:59 PM UTC 8462-4 Diastolic blood pressure October 10, 2023 4:32:15 PM UTC 62.0 mm[Hg] [id number] on October 11, 2023 6:39:58 PM UTC 8867-4 Heart rate October 10, 2023 4:32:15 PM UTC 93 /min [id number] on October 11, 2023 6:39:58 PM UTC 28376-3 Oxygen saturation in Arterial blood by Pulse oximetry October 10, 2023 4:32:15 PM UTC 99.0 % [id number] on October 11, 2023 6:39:58 PM UTC 9279-1 Respiratory rate October 10, 2023 4:32:15 PM UTC 16 /min [id number] on October 11, 2023 6:39:58 PM UTC 8480-6 Systolic blood pressure October 10, 2023 4:32:15 PM UTC 112.0 mm[Hg] [id number] on October 11, 2023 6:39:58 PM UTC PEDIATRIC GROWTH CHART - VITAL SIGNS This [...] CRAMPING Admission October 10, 2023 4:26:00 PM UTC [place] [id number] [facility] [id number] Discharge October 10, 2023 6:39:00 PM UTC LEFT AGAINST ADVICE OR DISCONTINUED ENCOUNTER DIAGNOSES Notes information is not derek ilable. Code System Diagnosis Onset Date Diagnosis information is not available. ABSTRACT DIAGNOSES Code System Diagnosis Updated By Z53.21 ICD10 PROCEDURE AND TR EATMENT NOT CARRIED OUT DUE TO PATIENT LEAVING PRIOR TO BEING SEEN BY HEALTH CARE PROVIDER [id number] on October 14, 2023 8:18:28 PM UT Z53.21 ICD10 PROCEDURE AND TR EATMENT NOT CARRIED OUT DUE TO PATIENT LEAVING PRIOR TO BEING SEEN BY HEALTH CARE PROVIDER [id number] on October 14, 2023 8:18:29 PM UTC CARE TEAM Care Slitter Processed Film Role EDISON WAKEFIELD Admitting EDISON WAKEFIELD Primary Attending PCP DECLINED Primary Care EDISON WAKEFIELD Referring CARE TEAM CARE e commerce architect Role on Team Status Start Date End Date Update d By ASHU HOGAN MD Referring normal October 10, 2023 6:25:24 PM UTC October 10, 2023 4:00:00 AM UTC [id number] on October 10, 2023 6:25:24 PM UTC ASHU HOGAN MD Attending normal October 10, 2023 6:25:24 PM UTC October 10, 2023 4:00:00 AM UTC [id number] on October 10, 2023 6:25:24 PM UTC ASHU HOGAN MD Admitting normal October 10, 2023 6:25:24 PM UTC October 10, 2023 4:00:00 AM UTC [id number] on October 10, 2023 6:25:24 PM UTC DECLINED PCP PCP normal October 10, 2023 4:26:29 PM UTC October 10, 2023 4:00:00 AM UTC [id number] on October 10, 2023 6:25:24 PM UTC
--- NOTE | 2023-10-23 13:14 | PC.WOUNDNOTE ---
DR BLAKE AT BEDSIDE
[2023-10-23 13:24] LABS: Appearance,Urine Turbid (Clear); Color,Urine Dark Yellow (Yellow)
--- NOTE | 2023-10-23 13:25 | PC.NURSE ---
LAB NOTIFIED OF TYPE AND SCREEN
[2023-10-23 13:51] LABS: Chloride 106 mmol/L (98-107); Potassium 3.6 mmoL/L (3.5-5.1); Sodium 138 mmol/L (136-145)
[2023-10-23 13:53] LABS: Alanine Aminotransferase 30 U/L (12-78); Alkaline Phosphatase 67 U/L (38-126); Aspartate Amino Transferase 25 U/L (14-36); Bilirubin,Total 0.3 mg/dl (0.2-1.3); Blood Urea Nitrogen 11 mg/dl (7-17); Creatinine Clearance Estimated 147 mL/min (50-200); Estimated Glomerular Filt Rate 112 ml/min (>60); GFR (African American) 136 ML/MIN (>60)
[2023-10-23 13:54] LABS: Albumin/Globulin Ratio 1.4 (1.1-1.8); Anion Gap 10.6 mEq/L (5-15); Calcium 9.3 mg/dl (8.4-10.2); Carbon Dioxide 25 mmol/L (22.0-30.0); Globulin 2.8 g/dL (1.3-3.2); Glucose 83 mg/dl (74-100); Lipase 48 U/L (23-300); Total Protein,Serum 6.8 g/dl (6.3-8.2)
[2023-10-23 14:11] LABS: HCG,Quantitative 3798 mIU/ml (0-5.42)
--- NOTE | 2023-10-23 14:14 | ED_ITS ---
Discharge Plan Disposition Patient Disposition: Home, Self-Care Prescriptions Prescriptions: New cefdinir 300 mg capsule 300 mg PO BID 7 Days Qty: 14 0RF No Action fluconazole 150 mg tablet 150 mg PO Q3D Qty: 1 0RF cephalexin 500 mg capsule 500 mg PO Q6H 7 Days Qty: 28 0RF Referrals Follow up/Referrals: Yanet Holt DO [Staff Physician] - See instructions Provider,Referral, [Primary Care Provider] - See instructions Activity Restrictions/Add. Instructions Additional Instructions/Restrictions: Call your family doctor to establish care for this visit to the emergency department and schedule follow-up within 48 hours to ensure improvement. If you have any worsening of your condition or any other concerning signs or symptoms, return to the emergency department or your primary care doctor for further evaluation. Start taking vitamin. Follow-up with Dr. Holt for further OB care Clinical Impressions Clinical Impression: Urinary tract infection, Instructions Patient Instructions: DI for Acute Abdominal Pain Discharge ED Provider: Abi Matta General Adult HPI <Abel Albreto MD - Last Filed: 10/23/23 15:20> General Chief complaint: Abdominal Pain Stated complaint: abd pain, cramping Time Seen by Provider: 10/23/23 13:09 Mode of Arrival: Ambulatory Source of Information: Patient Limitations: No Limitations Description of Symptoms (Recalled from ER Triage Doc. by RN): Patient reports being approx 2-3 weeks and complaining of lower abdomen cramping and not being able to eat. History of Present Illness HPI narrative: Please note that above description of symptoms, in this electronic medical record under categorization of recalled from ER triage doctor by RN are reflective of an initial nursing assessment, however, is not reflective of my full history and physical exam that was personally taken and clarified. Consequentially, this preceding description of symptoms, which may include the patient's categorized chief complaint in the EMR, do not reflect my personal clinical impression, and the ultimate description of history of present illness and patient stated complaints should be deferred to this section of the note. Unless stated otherwise or congruent with this section of the note, additional signs, symptoms, or incongruence should be interpreted as inaccurate with my clinical impression. Related Data Previous Rx's Medication Instructions Recorded cephalexin 500 mg capsule 500 mg PO Q6H 7 days #28 caps 10/12/23 fluconazole 150 mg tablet 150 mg PO Q3D 1 dose #1 tab 10/12/23 cefdinir 300 mg capsule 300 mg PO BID 7 days #14 caps 10/23/23 Allergies Allergy/AdvReac Type Severity Reaction Status Date / Time tramadol Allergy Verified 10/12/23 07:52 PFSH <Abel Alberto MD - Last Filed: 10/23/23 15:20> PFS Disclaimer: The information contained in this section may have been updated after the patient was seen, as this information can be updated by other users. Social History (Updated 10/13/23 @ 20:07 by Raleigh Barrios MD) Smoking Status: Current every day smoker alcohol intake: former current occupational status: other Travel in the last 8 weeks: None <Abel Alberto MD - Last Filed: 10/23/23 15:20> ROS Obtained: Yes All systems reviewed & no additional complaints except as documented Physical Exam <Abel Alberto MD - Last Filed: 10/23/23 15:20> General General appearance: alert and in no apparent distress Head Head exam: atraumatic and normocephalic Eye Eye exam: Present normal appearance, PERRL and EOMI ENT ENT exam: Present mucous membranes moist Neck Neck exam: Present normal inspection, full ROM and trachea midline Respiratory Respiratory exam: Absent respiratory distress, wheezes, stridor, accessory muscle use or prolonged expiratory phase Cardiovascular Cardiovascular exam: Present normal rhythm Abdominal Exam Abdominal exam: Present soft; Absent distention, tenderness, guarding, rebound or rigidity Extremities Exam Extremities exam: Absent edema Neurological Exam Neurological exam: Present alert, oriented X3, CN II-XII intact and normal gait; Absent motor sensory deficit Skin Skin exam: Present warm and dry; Absent diaphoresis or erythema Medical Decision Making <Abel Alberto MD - Last Filed: 10/23/23 15:20> Medical Records Medical records reviewed: Yes I reviewed the patient's medical records. Andre Inquiry Pt receiving controlled substance: No Andre was queried for this patient: No Vital Signs: 10/23/23 12:55 10/23/23 16:02 Temperature 97.9 F 97.9 F Temperature Source Oral Oral Pulse Rate 90 Pulse Rate [Radial] 94 H Respiratory Rate 16 16 Blood Pressure 132/78 Blood Pressure [Right Arm] 124/76 Blood Pressure Mean [Right Arm] 92 Blood Pressure Source Automatic Cuff Blood Pressure Source [Right Arm] Automatic Cuff Blood Pressure Position Sitting Blood Pressure Position [Right Arm] Sitting 02 Sat by Pulse Oximetry 100 Oxygen Delivery Method Room Air Room Air Lab Data Lab Results 10/23/23 13:02: Urine Color Dark yellow, Urine Appearance Turbid, Urine pH 6.5, Ur Specific [place] 1.025, Urine Protein Negative, Urine Glucose (UA) Negative, Urine Ketones Negative, Urine Blood Negative, Urine Nitrate Negative, Urine Bilirubin Negative, Urine Urobilinogen 0.2, Ur Leukocyte Esterase 1+ A, Urine RBC None, Urine WBC 3-5, Ur Squamous Epith Cells 5-10, Urine Bacteria Trace 10/23/23 13:30: WBC 8.4, RBC 4.20, Hgb 12.7, Hct 38.9, MCV 92.6, MCH 30.3, MCHC 32.7, RDW 14.2, Plt Count 374, MPV 7.7, Neut % (Auto) 60.1, Lymph % (Auto) 32.6, Leslie % (Auto) 5.6, Eos % (Auto) 1.1, Baso % (Auto) 0.5, Neut # (Auto) 5.1, Lymph # (Auto) 2.7, Leslie # (Auto) 0.5, Eos # (Auto) 0.1, Baso # (Auto) 0.1, Sodium 138, Potassium 3.6, Chloride 106, Carbon Dioxide 25, Anion Gap 10.6, BUN 11, Creatinine 0.60, Estimated Creat Clear 147, Estimated GFR 112, Est GFR ( Amer) 136, Glucose 83, Calcium 9.3, Total Bilirubin 0.3, AST 25, ALT 30, Alkaline Phosphatase 67, Total Protein 6.8, Albumin 4.0, Globulin 2.8, Albumin/Globulin Ratio 1.4, Lipase 48, HCG, Quant 3798 H, Blood Type A Positive, Antibody Screen Negative 10/23/23 13:30 10/23/23 13:30 Orders (Tests/Meds): ED MEDICATIONS Discontinued Medications Generic Name Dose Route Start Last Admin Trade Name Freq PRN Reason Stop Dose Admin Cefdinir 300 mg 10/23/23 15:18 10/23/23 15:25 Cefdinir 300mg Capsule PO 10/23/23 15:19 300 mg ONCE ONE Administration Multivit/Folic Acid/Iron 1 each 10/23/23 14:15 10/23/23 14:22 Multivitamin W/Iron PO 10/23/23 14:16 1 each ONCE ONE Administration ORDERS Category Date Time Status Type and Screen Stat BBK 10/23/23 13:30 Completed CBC w/Auto Diff [Complete Blood Count Auto Diff] Stat Lab 10/23/23 13:30 Completed CMP [Comprehensive Metabolic Panel] Stat Lab 10/23/23 13:30 Completed HCG,Quantitative Stat Lab 10/23/23 13:30 Completed Lipase Stat Lab 10/23/23 13:30 Completed UA [Urinalysis and Microscopic] Stat Lab 10/23/23 13:02 Completed Urine Culture Stat Micro 10/23/23 13:02 Received US OB transvaginal Stat Ultrasound 10/23/23 14:22 Completed Medical Decision Narrative: 38-year-old female presenting with positive test. Patient states that she has recently been diagnosed with UTI, finished her antibiotics with cephalexin. No longer having urinary symptoms. Took test x 2 and they were both positive. States her last menstrual period was 09/28/2023. Has been having nausea without vomiting, weird cravings, etc. Has not been taking vitamins or had OB follow-up yet. No vaginal discharge or bleeding, urinary symptoms, fevers, chills, or any other symptoms. Wants to be checked out to make sure everything is okay. History was obtained via conversation with patient. On arrival, patient hemodynamically stable, alert, oriented x4, appropriate, GCS 15, moving all extremities spontaneously, pupils equal and reactive to light. Full physical exam performed and significant for well-appearing woman no acute distress. Abdomen is soft, nontender, nondistended. No overlying skin change. No obvious organomegaly. Unremarkable exam. Differential includes true positive test, false positive test, UTI, cystitis, among others. Patient was given vitamin for symptomatic management and correction of underlying abnormalities. Workup independently interpreted and significant for nonactionable CBC or chemistry. hCG elevated at almost 4000. UA with concern for UTI leukocyte Estrace and bacteria. Patient given cefdinir for this. Prior to ultrasound, care handed off to oncoming physician. Laser Beam Cutter disclaimer Much of this encounter note is an electronic technical program manager spoken language to printed text. Electronic technical program manager of the spoken language may permit errors. Although I have reviewed the note, some errors may still exist. <Abi N Matta, DO - Last Filed: 10/23/23 16:33> Vital Signs: 10/23/23 12:55 10/23/23 16:02 Temperature 97.9 F 97.9 F Temperature Source Oral Oral Pulse Rate 90 Pulse Rate [Radial] 94 H Respiratory Rate 16 16 Blood Pressure 132/78 Blood Pressure [Right Arm] 124/76 Blood Pressure Mean [Right Arm] 92 Blood Pressure Source Automatic Cuff Blood Pressure Source [Right Arm] Automatic Cuff Blood Pressure Position Sitting Blood Pressure Position [Right Arm] Sitting 02 Sat by Pulse Oximetry 100 Oxygen Delivery Method Room Air Room Air Lab Data Lab Results 10/23/23 13:02: Urine Color Dark yellow, Urine Appearance Turbid, Urine pH 6.5, Ur Specific [place] 1.025, Urine Protein Negative, Urine Glucose (UA) Negative, Urine Ketones Negative, Urine Blood Negative, Urine Nitrate Negative, Urine Bilirubin Negative, Urine Urobilinogen 0.2, Ur Leukocyte Esterase 1+ A, Urine RBC None, Urine WBC 3-5, Ur Squamous Epith Cells 5-10, Urine Bacteria Trace 10/23/23 13:30: WBC 8.4, RBC 4.20, Hgb 12.7, Hct 38.9, MCV 92.6, MCH 30.3, MCHC 32.7, RDW 14.2, Plt Count 374, MPV 7.7, Neut % (Auto) 60.1, Lymph % (Auto) 32.6, Leslie % (Auto) 5.6, Eos % (Auto) 1.1, Baso % (Auto) 0.5, Neut # (Auto) 5.1, Lymph # (Auto) 2.7, Leslie # (Auto) 0.5, Eos # (Auto) 0.1, Baso # (Auto) 0.1, Sodium 138, Potassium 3.6, Chloride 106, Carbon Dioxide 25, Anion Gap 10.6, BUN 11, Creatinine 0.60, Estimated Creat Clear 147, Estimated GFR 112, Est GFR ( Amer) 136, Glucose 83, Calcium 9.3, Total Bilirubin 0.3, AST 25, ALT 30, Alkaline Phosphatase 67, Total Protein 6.8, Albumin 4.0, Globulin 2.8, Albumin/Globulin Ratio 1.4, Lipase 48, HCG, Quant 3798 H, Blood Type A Positive, Antibody Screen Negative Orders (Tests/Meds): ED MEDICATIONS Discontinued Medications Generic Name Dose Route Start Last Admin Trade Name Jamal PRN Reason Stop Dose Admin Cefdinir 300 mg 10/23/23 15:18 10/23/23 15:25 Cefdinir 300mg Capsule PO 10/23/23 15:19 300 mg ONCE ONE Administration Multivit/Folic Acid/Iron 1 each 10/23/23 14:15 10/23/23 14:22 Multivitamin W/Iron PO 10/23/23 14:16 1 each ONCE ONE Administration ORDERS Category Date Time Status Type and Screen Stat BBK 10/23/23 13:30 Completed CBC w/Auto Diff [Complete Blood Count Auto Diff] Stat Lab 10/23/23 13:30 Completed CMP [Comprehensive Metabolic Panel] Stat Lab 10/23/23 13:30 Completed HCG,Quantitative Stat Lab 10/23/23 13:30 Completed Lipase Stat Lab 10/23/23 13:30 Completed UA [Urinalysis and Microscopic] Stat Lab 10/23/23 13:02 Completed Urine Culture Stat Micro 10/23/23 13:02 Received US OB transvaginal Stat Ultrasound 10/23/23 14:22 Completed Medical Decision Narrative: 38-year-old female presenting with positive test. Patient states that she has recently been diagnosed with UTI, finished her antibiotics with cephalexin. No longer having urinary symptoms. Took test x 2 and they were both positive. States her last menstrual period was 09/28/2023. Has been having nausea without vomiting, weird cravings, etc. Has not been taking vitamins or had OB follow-up yet. No vaginal discharge or bleeding, urinary symptoms, fevers, chills, or any other symptoms. Wants to be checked out to make sure everything is okay. History was obtained via conversation with patient. On arrival, patient hemodynamically stable, alert, oriented x4, appropriate, GCS 15, moving all extremities spontaneously, pupils equal and reactive to light. Full physical exam performed and significant for well-appearing woman no acute distress. Abdomen is soft, nontender, nondistended. No overlying skin change. No obvious organomegaly. Unremarkable exam. Differential includes true positive test, false positive test, UTI, cystitis, among others. Patient was given vitamin for symptomatic management and correction of underlying abnormalities. Workup independently interpreted and significant for nonactionable CBC or chemistry. hCG elevated at almost 4000. UA with concern for UTI leukocyte Estrace and bacteria. Patient given cefdinir for this. Prior to ultrasound, care handed off to oncoming physician. Laser Beam Cutter disclaimer Much of this encounter note is an electronic technical program manager spoken language to printed text. Electronic technical program manager of the spoken language may permit errors. Although I have reviewed the note, some errors may still exist. DO Paxton: I assumed care of the patient at 1500 pending transvaginal ultrasound read. Ultrasound read demonstrates viable intrauterine with no obvious ectopic and no signs of ovarian torsion. Urine concerning for leukocyte esterase and bacteria. Previous provider had prescribed the patient cefdinir for this. Patient is requesting to leave at this time. Given workup is reassuring, I feel that discharge is appropriate. She was given instructions for close follow-up and discharge instructions that were previously prepped by Dr. Alberto. Patient was discharged after all questions were answered with very strict return precautions. Critical Care <Abel Alberto MD - Last Filed: 10/23/23 15:20> Critical Care Time Critical Care Time: No
[2023-10-23 14:16] LABS: Basophils # 0.1 K/mm3 (0-0.2); Basophils % 0.5 % (0.1-2.0); Eosinophils # 0.1 K/mm3 (0.0-0.4); Eosinophils % 1.1 % (0.1-12.0); Hematocrit 38.9 % (37.0-47.0); Hemoglobin 12.7 g/dL (12.2-16.2); Lymphocytes # 2.7 K/mm3 (0.7-4.5); Lymphocytes % 32.6 % (10-50); Mean Corpuscular HGB Conc 32.7 g/dL (31.8-35.4); Mean Corpuscular Hemoglobin 30.3 pg (27.0-31.2); Mean Corpuscular Volume 92.6 fl (81-99); Mean Platelet Volume 7.7 fl (7.4-10.4); Monocytes # 0.5 K/mm3 (0.1-1.0); Monocytes % 5.6 % (1.7-9.3); Neutrophils # 5.1 K/mm3 (1.8-7.8); Neutrophils % 60.1 % (37.0-80.0); Platelet Count 374 K/mm3 (142-424); Red Cell Distribution Width 14.2 % (11.5-17.5); White Blood Count 8.4 K/mm3 (4.8-10.8)
[2023-10-23] MEDS: PRENATAL MULTIVITAMIN W/IRON 1 EACH PO (14:22)
--- NOTE | 2023-10-23 14:22 | US_ITS ---
PROCEDURE INFORMATION: Exam: US , Transvaginal and US Duplex Artery and Vein, Ovaries, Complete Exam date and time: 10/23/2023 2:36 PM Age: 38 years old Clinical indication: complicated by abdominal or pelvic pain; Generalized abdominal pain; First trimester (<14 weeks 0 days); Gestational age or lmp: 09/01/2023; ; Patient HX: Patient didn't seem to be certain on lmp. Beta was 3500; Additional info: Cramping, hcg 3500 LABS AND CLINICAL REPORTS: Last menstrual period start date: 09/01/2023 Gestational age (Established): 7 w 3 d Estimated due date (Established): 06/07/2024 TECHNIQUE: Imaging protocol: Real-time transvaginal obstetrical ultrasound of the maternal pelvis and a first trimester with image documentation. Transvaginal imaging was used for better evaluation of the fetus, adnexa, and/or cervix. Real-time duplex ultrasound scan of the arterial and venous flow of the ovaries with B-mode, color Doppler flow and spectral waveform analysis, Complete Duplex. Duplex exam was performed to evaluate for torsion and other vascular conditions. Total images: 489 COMPARISON: No relevant prior studies available. FINDINGS: GESTATION: Gestation: Single intrauterine gestation. Gestational sac measures 9 x 5 x 5 mm. Placenta: Unremarkable. No subchorionic bleed. Amniotic fluid (Qualitative): Amniotic fluid is normal for gestational age. BIOMETRY: Gestational age (AUA): 5 w 2 d Estimated due date (AUA): 06/22/2024 Mean sac diameter: 0.94 cm. MATERNAL: Right ovary/adnexa: Right ovary measures 4 cm x 3.15 cm x 1.67 cm. Right ovarian volume is 11.02 mL. Blood flow is demonstrated to the right ovary. Right adnexal cystic lesion noted. Left ovary/adnexa: Left ovary measures 2.95 cm x 0.91 cm x 0.9 cm. Left ovarian volume is 1.27 mL. Blood flow is demonstrated to the left ovary. Intraperitoneal space: No intraperitoneal free fluid. IMPRESSION: 1. Single intrauterine gestation. 2. Average gestational age (AUA) 5 weeks 2 days. 3. No evidence of ovarian torsion. 4. Right adnexal cystic lesion noted.
--- NOTE | 2023-10-23 14:30 | PC.NURSE ---
pt taken to u/s via wheelchair
--- NOTE | 2023-10-23 14:53 | PC.NURSE ---
Pt brought back to room from U/S tech
[2023-10-23] MEDS: CEFDINIR 300MG CAPSULE 300 MG PO (15:25)
[2023-10-23 16:02] VITALS: BP 132/78; PULSE 90; RESP 16; TEMP 36.6; O2SAT 100
[2023-10-23 16:21] LABS: Bacteria,Urine Trace /lpf
== END 2023-10-23 16:04 | disposition home or self-care (01) ==
PROVIDERS: Emergency Medicine; Emergency Provider Emergency Medicine
DX: O23.41 Unspecified infection of urinary tract in pregnancy, first trimester (principal); B96.89 Other specified bacterial agents as the cause of diseases classified elsewhere; Z3A.01 Less than 8 weeks gestation of pregnancy; R10.30 Lower abdominal pain, unspecified
CPT/HCPCS: 76817; 80053; 81001; 83690; 84702; 85025; 86850; 87086; 99284

== ENCOUNTER 2023-11-06 20:28 | Emergency (ER) | payer SELFPAY ==
[2023-11-06 20:28] VITALS: BP 110/55; PULSE 82; RESP 17; TEMP 37; O2SAT 99
[2023-11-06 20:35] VITALS: BMI 29.0
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
[2023-11-06 20:36] VITALS: BP 110/70; PULSE 80; RESP 17; TEMP 37; O2SAT 99
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
[2023-11-06] MEDS: ACETAMINOPHEN 1,000MG/100ML VIAL 1000 MG IV (20:40)
[2023-11-06 20:58] LABS: Alanine Aminotransferase 29 U/L (12-78); Albumin Level 3.9 g/dl (3.5-5.0); Albumin/Globulin Ratio 1.4 (1.1-1.8); Alkaline Phosphatase 68 U/L (38-126); Anion Gap 12.6 mEq/L (5-15); Aspartate Amino Transferase 26 U/L (14-36); Basophils # 0.1 K/mm3 (0-0.2); Basophils % 0.4 % (0.1-2.0); Bilirubin,Total 0.2 mg/dl (0.2-1.3); Blood Urea Nitrogen 11 mg/dl (7-17); Calcium 9.3 mg/dl (8.4-10.2); Carbon Dioxide 23 mmol/L (22.0-30.0); Chloride 109 mmol/L (98-107); Eosinophils # 0.1 K/mm3 (0.0-0.4); Eosinophils % 0.8 % (0.1-12.0); Estimated Glomerular Filt Rate 94 ml/min (>60); GFR (African American) 114 ML/MIN (>60); Globulin 2.7 g/dL (1.3-3.2); Glucose 103 mg/dl (74-100); Hematocrit 35.2 % (37.0-47.0); Hemoglobin 11.7 g/dL (12.2-16.2); Lymphocytes # 3.5 K/mm3 (0.7-4.5); Lymphocytes % 27.5 % (10-50); Mean Corpuscular HGB Conc 33.4 g/dL (31.8-35.4); Mean Corpuscular Volume 92.7 fl (81-99); Mean Platelet Volume 8.2 fl (7.4-10.4); Monocytes # 0.5 K/mm3 (0.1-1.0); Neutrophils # 8.7 K/mm3 (1.8-7.8); Neutrophils % 67.3 % (37.0-80.0); Platelet Count 310 K/mm3 (142-424); Potassium 3.6 mmoL/L (3.5-5.1); Red Blood Count 3.79 M/mm3 (4.20-5.40); Red Cell Distribution Width 13.6 % (11.5-17.5); Sodium 141 mmol/L (136-145); Total Protein,Serum 6.6 g/dl (6.3-8.2); White Blood Count 12.9 K/mm3 (4.8-10.8)
--- NOTE | 2023-11-06 21:04 | PC.NURSE ---
patient to ultrasound
[2023-11-06] MEDS: LACTATED RINGERS 1000ML 1,000 ML 999 ML IV (21:30)
[2023-11-06 21:39] LABS: HCG,Quantitative 65998 mIU/ml (0-5.42)
[2023-11-06 21:42] VITALS: BP 117/62; PULSE 76; RESP 17; TEMP 36.8; O2SAT 97
== END 2023-11-06 21:49 | disposition home or self-care (01) ==
PROVIDERS: Emergency Provider Student in an Organized Health Care Education/Training Program
DX: O9A.211 Injury, poisoning and certain other consequences of external causes complicating pregnancy, first trimester (principal); S49.92XA Unspecified injury of left shoulder and upper arm, initial encounter; Z3A.01 Less than 8 weeks gestation of pregnancy; M25.512 Pain in left shoulder; V48.5XXA Car driver injured in noncollision transport accident in traffic accident, initial encounter; Y92.410 Unspecified street and highway as the place of occurrence of the external cause; O26.891 Other specified pregnancy related conditions, first trimester
CPT/HCPCS: 36415; 71045; 73030; 76817; 80053; 84702; 85025; 86850; 96361; 96374; 99285; J0131; J7120

== ENCOUNTER 2023-11-17 08:12 | Outpatient (CLI) | payer MEDICAID, SELFPAY ==
[2023-11-17 11:04] LABS: HCG,Quantitative 93129 mIU/ml (0-5.42)
[2023-11-18 13:14] LABS: Progesterone 10.6 ng/mL (.)
== END 2023-11-17 23:59 | disposition home or self-care (01) ==
LOC: LAB 08:17
PROVIDERS: Visit Provider Obstetrics & Gynecology
DX: Z34.90 Encounter for supervision of normal pregnancy, unspecified, unspecified trimester (principal)
CPT/HCPCS: 36415; 84144; 84702

== ENCOUNTER 2023-11-25 11:43 | Outpatient (CLI) | payer MEDICAID, SELFPAY ==
[2023-11-25 12:15] LABS: Basophils % 0.2 % (0.1-2.0); Eosinophils # 0.1 K/mm3 (0.0-0.4); Eosinophils % 0.5 % (0.1-12.0); Hematocrit 39.9 % (37.0-47.0); Hemoglobin 13.2 g/dL (12.2-16.2); Lymphocytes # 3.1 K/mm3 (0.7-4.5); Lymphocytes % 22.6 % (10-50); Mean Corpuscular HGB Conc 33.2 g/dL (31.8-35.4); Mean Corpuscular Volume 93.2 fl (81-99); Mean Platelet Volume 8.2 fl (7.4-10.4); Monocytes # 0.5 K/mm3 (0.1-1.0); Monocytes % 3.9 % (1.7-9.3); Neutrophils % 72.9 % (37.0-80.0); Platelet Count 347 K/mm3 (142-424); Red Blood Count 4.28 M/mm3 (4.20-5.40); Red Cell Distribution Width 14.1 % (11.5-17.5); White Blood Count 13.7 K/mm3 (4.8-10.8)
[2023-11-26 06:13] LABS: Hepatitis B Surface Antigen Negative (Negative)
[2023-11-26 08:21] LABS: Rubella Antibodies, IgG 3.25 index (Immune >0.99)
[2023-11-26 13:05] LABS: HIV (1&2) Antibody Rapid NON REACTIVE
[2023-11-26 13:33] LABS: Rapid Plasma Reagin Ab Titer Non Reactive titer (NonRea<1:1)
[2023-11-27 19:15] LABS: HCV Ab Reactive (Non Reactive)
== END 2023-11-25 23:59 | disposition home or self-care (01) ==
PROVIDERS: PCP Family Medicine; Visit Provider Obstetrics & Gynecology
DX: E03.9 Hypothyroidism, unspecified (principal); O09.529 Supervision of elderly multigravida, unspecified trimester
CPT/HCPCS: 36415; 85025; 86593; 86762; 86850; 87086; 87088; 87186; 87340

== ENCOUNTER 2023-12-17 14:31 | Emergency (ER) | payer MEDICAID, SELFPAY ==
[2023-12-17 14:32] VITALS: BP 126/68; PULSE 86; RESP 19; TEMP 36.7; O2SAT 100; BMI 30.9
--- NOTE | 2023-12-17 15:31 | [facility].EDGENADL ---
Discharge Plan Disposition Patient Disposition: Home, Self-Care Condition: Good Prescriptions Prescriptions: No Action metronidazole 0.75 % gel 1 applic topical HS 5 Days Qty: 45 0RF azithromycin 500 mg tablet 1,000 mg PO ONCE Qty: 2 0RF nitrofurantoin monohyd/m-cryst [Macrobid] 100 mg capsule 100 mg PO Q12H 7 Days Qty: 10 0RF Rx Instructions: must administer with a meal/food Referrals Follow up/Referrals: Skip Tellez MD [Primary Care Provider] - See instructions Activity Restrictions/Add. Instructions Additional Instructions/Restrictions: You were evaluated in the emergency department today. Please use the drops provided to you. Apply 4 drops into the affected ear twice a day for 7 days. Follow-up closely with your primary care provider. Take Tylenol at home every 4-6 hours as needed for pain. Return to the emergency department for new or worsening symptoms. Clinical Impressions Clinical Impression: Acute otitis externa of left ear Stand Alone Forms Stand Alone Forms: Work/School Release Instructions Patient Instructions: DI for Otitis Externa Print Language Print Language: Telugu Discharge ED Provider: Abi Matta General Adult HPI General Chief complaint: Ear Stated complaint: Pain in L ear, moth flew in ear Time Seen by Provider: 12/17/23 15:29 History of Present Illness HPI narrative: This patient is a 38-year-old female who is currently 12 weeks with history of prior drug abuse presenting with concern for left ear pain. Patient reports that she thinks potentially moth could have flown into her ear around 3 AM, and she has had pain in the ear since. She denies any sensation of anything moving or any abnormal sounds in her ear. She has been keeping a piece of cotton in her ear. No other concerns or symptoms noted at this time. Related Data Previous Rx's ?Medication ?Instructions ?Recorded azithromycin 500 mg tablet 1,000 mg (2 x 500 mg) PO ONCE #2 11/27/23 tabs metronidazole 0.75 % topical gel 1 applic topical HS 5 days #45 11/27/23 grams nitrofurantoin 100 mg PO Q12H uti 7 days #10 caps 12/01/23 monohydrate/macrocrystals 100 mg capsule (Macrobid) Allergies Allergy/AdvReac Type Severity Reaction Status Date / Time tramadol Allergy Verified 11/25/23 10:15 [facility] Disclaimer: The information contained in this section may have been updated after the patient was seen, as this information can be updated by other users. Medical History Scoliosis Methamphetamine abuse History of drug abuse Hypothyroidism affecting History of hepatitis C AMA (advanced maternal age) multigravida 35+ Seizures Schizophrenic disorder PTSD (post-traumatic stress disorder) Bipolar 1 disorder Anxiety Surgical History Hx of tonsillectomy Family History Grandmother Kidney disease Other Coronary artery disease Hypertension Stroke Substance abuse Thyroid disorder Social History Smoking Status: Current every day smoker tobacco type: cigarettes alcohol intake: former substance use type: methamphetamine current occupational status: other Travel in the last 8 weeks: None ROS Obtained: Yes All systems reviewed & no additional complaints except as documented Physical Exam General General appearance: alert and in no apparent distress Head Head exam: atraumatic and normocephalic Eye Eye exam: Present normal appearance, PERRL and EOMI ENT ENT exam: Present normal oropharynx, mucous membranes moist, TM's normal bilaterally and normal external ear exam Expanded ENT Exam External ear exam: Present other (No notable foreign body in either ear); Absent periauricular adenopathy TM/Canal exam: Left TM: erythema, canal discharge and canal tenderness Neck Neck exam: Present normal inspection, full ROM and trachea midline; Absent tenderness Chest Chest inspection: Present normal inspection and symmetric chest wall rise; Absent tenderness Respiratory Respiratory exam: Present normal lung sounds bilaterally; Absent respiratory distress, wheezes, stridor or accessory muscle use Cardiovascular Cardiovascular exam: Present regular rate and normal rhythm Abdominal Exam Abdominal exam: Present soft; Absent distention, tenderness or guarding Extremities Exam Extremities exam: Present normal inspection, full ROM and normal capillary refill; Absent tenderness or edema Back Exam Back exam: Present normal inspection and full ROM; Absent tenderness Neurological Exam Neurological exam: Present alert, oriented X3, CN II-XII intact and normal gait; Absent motor sensory deficit Psychiatric Psychiatric exam: Present normal affect and normal mood Skin Skin exam: Present warm and dry Medical Decision Making Medical Records Medical records reviewed: Yes I reviewed the patient's medical records. Andre Inquiry Pt receiving controlled substance: No Vital Signs: 12/17/23 14:32 12/17/23 15:59 Temperature 98.0 F 98.0 F Temperature Source Oral Oral Pulse Rate 82 Pulse Rate [Left Radial] 86 Respiratory Rate 19 18 Blood Pressure 128/60 Blood Pressure [Right Arm] 126/68 Blood Pressure Mean [Right Arm] 87 02 Sat by Pulse Oximetry 100 Oxygen Delivery Method Room Air Room Air Lab Data Lab results reviewed: Yes I reviewed the patient's lab results. Orders (Tests/Meds): ED MEDICATIONS Discontinued Medications Generic Name Dose Route Start Last Admin Trade Name Freq PRN Reason Stop Dose Admin Ciprofloxacin/Dexamethasone 7.5 ml 12/17/23 15:32 12/17/23 15:55 Cipro 0.3%-Dex 0.1% Otic Susp 7.5ml OT 12/17/23 15:33 7.5 ml ONCE ONE Administration Medical Decision Narrative: In summary, this patient is a 38-year-old female presenting to the Emergency Department for evaluation of left ear pain. She is concerned a moth could have flown in there. Differential diagnoses considered include but are not limited to foreign body, otitis media, otitis externa. Ruling out the most morbid conditions drove assessment. On exam, the patient is well-appearing. She does have findings concerning for left otitis externa on clinical exam with canal irritation, discharge, and tenderness. She does not have any notable foreign body on exam. I do not see any insects or other issues. Tympanic membrane is normal and does not appear to be perforated. Ultimately, I do not feel that labs or imaging are indicated as they would not change attendant. Will treat the patient with Ciprodex drops, which are safe during since there is very little systemic absorption. Patient was discharged with Ciprodex, instructions for close outpatient follow-up, and strict return precautions. Critical Care Critical Care Time Critical Care Time: No
[2023-12-17] MEDS: CIPRO 0.3%-DEX 0.1% OTIC SUSP 7.5ML 7.5 ML OT (15:55)
[2023-12-17 15:59] VITALS: BP 128/60; PULSE 82; RESP 18; TEMP 36.7; O2SAT 98
== END 2023-12-17 16:00 | disposition home or self-care (01) ==
PROVIDERS: Emergency Provider Emergency Medicine; PCP Family Medicine
DX: O26.891 Other specified pregnancy related conditions, first trimester (principal); H60.92 Unspecified otitis externa, left ear; H92.02 Otalgia, left ear; Z3A.12 12 weeks gestation of pregnancy
CPT/HCPCS: 99283